=== PATIENT | female | born 1995 | race Caucasian/White ===

== ENCOUNTER 2021-06-24 10:43 | Outpatient (CLI) | payer BC, SELFPAY ==
[2021-06-24 11:34] LABS: Basophils Percent Auto 0.5 % (0.2-1.2); Eosinophils Absolute Auto 0.1 K/mm3 (0-0.3); Hematocrit 42.8 % (37.0-47.0); Immature Granulocyte Absolute 0.02 K/mm3 (0.00-0.031); Immature Granulocyte Percent A 0.3 % (0-0.5); Lymphocytes Absolute Auto 2.07 K/mm3 (0.9-3.2); Lymphocytes Percent Auto 33.7 % (18.3-44.2); Mean Corpuscular HGB Conc 32.7 g/dl (32-36); Mean Corpuscular Hemoglobin 31.3 pg (26-34); Mean Corpuscular Volume 95.5 fl (80-100); Mean Platelet Volume 9.6 fl (7.4-10.4); Monocytes Absolute Auto 0.5 K/mm3 (0.1-0.6); Monocytes Percent Auto 7.3 % (2.6-8.5); Neutrophils Absolute Auto 3.5 K/mm3 (1.3-6.7); Neutrophils Percent Auto 57.2 % (45.5-73.1); Platelet Count Result 298 k/mm3 (150-375); Red Blood Count 4.48 M/mm3 (4.2-5.4); White Blood Count 6.1 K/mm3 (4.5-10.0)
[2021-06-24 12:26] LABS: HIV 1/2 Ab P24 Ag Result Negative (Negative)
[2021-06-24 14:05] LABS: Hepatitis B Surface Antigen Negative (Negative); Rubella IgG Antibody 48.3 IU/ML
[2021-06-25 07:32] LABS: Rapid Plasma Reagin Non-Reactive (NonReactive)
[2021-06-26 08:34] LABS: CMV IgG Antibody <0.60 U/mL (<0.60)
== END 2021-06-24 10:44 | disposition home or self-care (01) ==
LOC: ANHLAB 10:48
PROVIDERS: PCP Obstetrics & Gynecology; Visit Provider Obstetrics & Gynecology
DX: N94.89 Other specified conditions associated with female genital organs and menstrual cycle (principal)
CPT/HCPCS: 36415; 84702; 85025; 86592; 86644; 86703; 86747; 86762; 86787; 86850; 86900; 86901; 87086; 87088; 87340; G0432

== ENCOUNTER 2021-06-28 09:57 | Emergency (ER) | payer BC, SELFPAY ==
--- NOTE | ~2021-06-28 | US_ITS ---
EXAMINATION: US OB <=14 wk fetus w TV DATE: 06/28/2021 14:58 INDICATION: Bleeding in early . TECHNIQUE: Real-time transabdominal and transvaginal pelvic ultrasound was performed. COMPARISON: None. FINDINGS: TRANSABDOMINAL ULTRASOUND: The uterus measures 8.5 x 4.3 x 5.7 cm. TRANSVAGINAL ULTRASOUND: There is a cyst in the endometrial complex with mean diameter of 1.8 cm. If this finding is a gestational sac, it correlates with an estimated gestational age of 6 weeks and 5 d ays. No yolk sac or pole is identified. The right ovary is not visualized. The left ovary measu res 3.2 x 2.3 x 2.5 cm. There is no free fluid in the pelvis. IMPRESSION: 1. Cyst in the endometrial complex that is indeterminate for a gestational sac with estimated date o f delivery of 02/16/2022. Spontaneous and ectopic are not excluded. Serial beta hC Gs are recommended. Reviewed, dictated and finalized at location A. IMPRESSION: 1. Cyst in the endometrial complex that is indeterminate for a gestational sac with estimated date of delivery of 02/16/2022. Spontaneous and ectopi c are not excluded. Serial beta hCGs are recommended.
[2021-06-28 10:08] VITALS: BP 152/86; PULSE 112; RESP 16; TEMP 36.8; O2SAT 100
[2021-06-28 11:11] LABS: Basophils Percent Auto 0.4 % (0.2-1.2); Eosinophils Percent Auto 0.7 % (0-4.4); Hematocrit 42.5 % (37.0-47.0); Immature Granulocyte Absolute 0.05 K/mm3 (0.00-0.031); Immature Granulocyte Percent A 0.9 % (0-0.5); Lymphocytes Absolute Auto 2.07 K/mm3 (0.9-3.2); Lymphocytes Percent Auto 37.4 % (18.3-44.2); Mean Corpuscular HGB Conc 32.9 g/dl (32-36); Mean Corpuscular Hemoglobin 31.5 pg (26-34); Mean Corpuscular Volume 95.5 fl (80-100); Mean Platelet Volume 9.2 fl (7.4-10.4); Monocytes Absolute Auto 0.5 K/mm3 (0.1-0.6); Monocytes Percent Auto 8.5 % (2.6-8.5); Neutrophils Absolute Auto 2.9 K/mm3 (1.3-6.7); Neutrophils Percent Auto 52.1 % (45.5-73.1); Platelet Count Result 303 k/mm3 (150-375); Red Blood Count 4.45 M/mm3 (4.2-5.4); Red Cell Distribution Width 12.1 % (11.5-14.5); White Blood Count 5.5 K/mm3 (4.5-10.0)
[2021-06-28 12:06] LABS: Appearance Urine Clear (Clear); Bilirubin Urine Negative (Negative); Blood Urine 2+ (Negative); Glucose Urine UA Negative (Negative); Ketones Urine Negative (Negative); Leukocyte Esterase Ur 3+ LEU/UL (Negative); Nitrate Urine Negative (Negative); Protein Urine Negative (Negative); Urobilinogen Urine 0.2 mg/dL (<2.0)
[2021-06-28 12:08] LABS: Add Urine Microscopic? YES; Color Urine Light Yellow (Yellow)
[2021-06-28 12:09] LABS: Bacteria Urine 2+ /hpf; Mucus Urine Rare /lpf; RBC Urine 0-2 /hpf (0-2); Squamous Epithelial Cell Urine Few /hpf (Few)
--- NOTE | 2021-06-28 12:17 | ED.FEMALEGU ---
HPI - Female Genitourinary General Chief complaint: Vaginal Bleeding <Ana Paula Ramirez PA-C - Last Filed: 06/28/21 19:18> Stated complaint: 9weeks , spotting <LYRIC Espinoza Last Filed: 06/28/21 19:18> Time Seen by Provider: 06/28/21 11:41 <LYRIC Espinoza Last Filed: 06/28/21 19:18> Source: patient <Ana Paula Ramirez PA-C - Last Filed: 06/28/21 19:18> Mode of arrival: ambulatory <LYRIC Espinoza Last Filed: 06/28/21 19:18> Limitations: no limitations <LYRIC Espinoza Last Filed: 06/28/21 19:18> History of Present Illness HPI Narrative: Patient is a 26-year-old female who presents the ED with report of vaginal bleeding. Patient reports she is approximately 9 weeks . . Her FOAM FABRICATOR is Dr. Rachel Win. She reports she noticed bright red vaginal bleeding with wiping after using the restroom today. Denied any clots. She did also have one episode of brown vaginal discharge last week. She has had intermittent cramping associated with having a bowel movement today, but denies any pain at this time. Patient saw her FOAM FABRICATOR earlier this week for the first time and had blood work done. Her beta-hCG on 06/24 was around 14,500. She had a bedside abdominal ultrasound and a gestational sac was seen however she was scheduled for an official ultrasound this upcoming Thursday. She was also diagnosed with a urinary tract infection at that time and has been on Keflex for the past 2 days. Patient denies any urinary symptoms. No fever, chills, nausea, vomiting. <LYRIC Espinoza Last Filed: 06/28/21 19:18> Related Data Home medications: Home Medications Medication Instructions Recorded Confirmed prenat.vits,primo,[id number] 1 tablet PO DAILY 06/20/21 06/20/21 <LYRIC Espinoza Last Filed: 06/28/21 19:18> Allergies/Adverse reactions: Allergies Allergy/AdvReac Type Severity Reaction Status Date / Time No Known Allergies Allergy Verified 06/20/21 08:22 <Ana Paula Ramirez PA-C - Last Filed: 06/28/21 19:18> Review of Systems Review of Systems: CONSTITUTIONAL: Denies fever, chills. CARDIOVASCULAR: Denies chest pain. RESPIRATORY: Denies dyspnea. GASTROINTESTINAL: Reports cramping w/ BM. Denies nausea, vomiting, or diarrhea. GENITOURINARY: Reports bright red vaginal bleeding. Denies dysuria or hematuria. MUSCULOSKELETAL: Denies back pain. <Ana Paula Ramirez PA-C - Last Filed: 06/28/21 19:18> All systems reviewed & are unremarkable except as noted in HPI and below <Ana Paula Ramirez PA-C - Last Filed: 06/28/21 19:18> PMFSH Past Medical History Medical History: Medical History (Updated 06/28/21 @ 15:35 by Ana Paula Ramirez PA-C) Currently Suppression of menses <Ana Paula Ramirez PA-C - Last Filed: 06/28/21 19:18> Surgical History Surgical History: Surgical History (Updated 06/28/21 @ 12:20 by Ana Paula Ramirez PA-C) No pertinent past surgical history <Ana Paula Ramirez PA-C - Last Filed: 06/28/21 19:18> Family History Family History: Family History (Updated 06/20/21 @ 08:19 by Chioma Dinh MA) Other Hypertension <Ana Paula Ramirez PA-C - Last Filed: 06/28/21 19:18> Social History Social History: Social History Smoking status: Never smoker Alcohol intake: never Substance use: never Substance use type: does not use Additional occupation/education comments: Media Gender identity (if verbalized by the patient): Female Sexual Orientation (if Verbalized by the Patient): Straight or Heterosexual <Ana Paula Ramirez PA-C - Last Filed: 06/28/21 19:18> Exam Narrative: GENERAL: Well appearing, well-nourished, non-toxic, in no acute distress. HEAD: Normocephalic, atraumatic. NECK: Supple. No adenopathy, no masses. RESPIRATORY: Airway patent, respirations nonlabored. Clear to auscultation bilaterally, no rales, rhonchi, wheezin
[2021-06-28 16:03] VITALS: PULSE 87; RESP 16; O2SAT 100
== END 2021-06-28 16:04 | disposition home or self-care (01) ==
PROVIDERS: Physician Assistant; Emergency Provider Emergency Medicine; PCP Obstetrics & Gynecology
DX: O03.9 Complete or unspecified spontaneous abortion without complication (principal)
CPT/HCPCS: 36415; 76801; 76817; 81001; 84702; 85025; 85461; 87086; 99284

== ENCOUNTER 2021-07-01 09:24 | Outpatient (CLI) | payer BC, SELFPAY | END 2021-07-01 09:25 | disposition home or self-care (01) | LOC: ANHLAB 09:26 | PROVIDERS: PCP Obstetrics & Gynecology; Visit Provider Obstetrics & Gynecology | DX: O02.1 Missed abortion (principal); Z3A.00 Weeks of gestation of pregnancy not specified | CPT/HCPCS: 36415; 84702 ==

== ENCOUNTER 2021-07-15 12:07 | Outpatient (CLI) | payer BC, SELFPAY ==
[2021-07-15 12:51] LABS: Beta HCG Quantitative 20.81 mIU/ML
== END 2021-07-15 12:08 | disposition home or self-care (01) ==
LOC: ANHLAB 12:08
PROVIDERS: PCP Obstetrics & Gynecology; Visit Provider Obstetrics & Gynecology
DX: O02.1 Missed abortion (principal); Z3A.00 Weeks of gestation of pregnancy not specified
CPT/HCPCS: 36415; 84702

== ENCOUNTER 2021-07-26 12:30 | Outpatient (CLI) | payer BC, SELFPAY ==
[2021-07-26 13:32] LABS: Beta HCG Quantitative < 2.39 mIU/ML
== END 2021-07-26 12:31 | disposition home or self-care (01) ==
LOC: ANHLAB 12:32
PROVIDERS: PCP Obstetrics & Gynecology; Visit Provider Obstetrics & Gynecology
DX: O02.1 Missed abortion (principal)
CPT/HCPCS: 36415; 84702

== ENCOUNTER 2021-11-07 15:17 | Outpatient (CLI) | payer BC, SELFPAY | END 2021-11-07 15:18 | disposition home or self-care (01) | LOC: ANHLAB 15:20 | PROVIDERS: PCP Obstetrics & Gynecology; Visit Provider Obstetrics & Gynecology | DX: O20.0 Threatened abortion (principal) | CPT/HCPCS: 36415; 84702 ==

== ENCOUNTER 2021-11-09 10:03 | Outpatient (CLI) | payer BC, SELFPAY | END 2021-11-09 10:04 | disposition home or self-care (01) | LOC: ANHLAB 10:05 | PROVIDERS: PCP Obstetrics & Gynecology; Visit Provider Obstetrics & Gynecology | DX: O20.0 Threatened abortion (principal); Z3A.00 Weeks of gestation of pregnancy not specified | CPT/HCPCS: 36415; 84702 ==

== ENCOUNTER 2021-11-22 12:14 | Outpatient (CLI) | payer BC, SELFPAY | END 2021-11-22 12:15 | disposition home or self-care (01) | LOC: ANHLAB 12:16 | PROVIDERS: PCP Obstetrics & Gynecology; Visit Provider Obstetrics & Gynecology | DX: O20.0 Threatened abortion (principal) | CPT/HCPCS: 36415; 84702 ==

== ENCOUNTER 2021-12-04 17:15 | Outpatient (CLI) | payer BC, SELFPAY ==
[2021-12-04 17:54] LABS: Basophils Percent Auto 0.2 % (0.2-1.2); Eosinophils Percent Auto 0.5 % (0-4.4); Hematocrit 39.9 % (37.0-47.0); Hemoglobin 13.6 g/dL (12.0-15.0); Immature Granulocyte Absolute 0.02 K/mm3 (0.00-0.031); Immature Granulocyte Percent A 0.2 % (0-0.5); Lymphocytes Absolute Auto 2.37 K/mm3 (0.9-3.2); Lymphocytes Percent Auto 28.3 % (18.3-44.2); Mean Corpuscular HGB Conc 34.1 g/dl (32-36); Mean Corpuscular Hemoglobin 32.2 pg (26-34); Mean Corpuscular Volume 94.3 fl (80-100); Mean Platelet Volume 9.7 fl (7.4-10.4); Monocytes Absolute Auto 0.7 K/mm3 (0.1-0.6); Monocytes Percent Auto 8.5 % (2.6-8.5); Neutrophils Absolute Auto 5.2 K/mm3 (1.3-6.7); Neutrophils Percent Auto 62.3 % (45.5-73.1); Platelet Count Result 316 k/mm3 (150-375); Red Blood Count 4.23 M/mm3 (4.2-5.4); Red Cell Distribution Width 11.9 % (11.5-14.5); White Blood Count 8.4 K/mm3 (4.5-10.0)
[2021-12-04 18:53] LABS: Hepatitis B Surface Antigen Negative (Negative); Rubella IgG Antibody 61.9 IU/ML
[2021-12-04 18:58] LABS: HIV 1/2 Ab P24 Ag Result Negative (Negative)
[2021-12-05 09:03] LABS: Rapid Plasma Reagin Non-Reactive (NonReactive)
[2021-12-06 17:58] LABS: CMV IgG Antibody <0.60 U/mL (<0.60)
== END 2021-12-04 17:16 | disposition home or self-care (01) ==
PROVIDERS: PCP Obstetrics & Gynecology; Visit Provider Obstetrics & Gynecology
DX: N94.89 Other specified conditions associated with female genital organs and menstrual cycle (principal); Z11.4 Encounter for screening for human immunodeficiency virus [HIV]
CPT/HCPCS: 36415; 85025; 86592; 86644; 86703; 86747; 86762; 86787; 86850; 86900; 86901; 87086; 87340; G0432

== ENCOUNTER 2022-03-10 10:36 | Observation (INO) | payer BC, SELFPAY ==
--- NOTE | 2022-03-10 10:36 | OBADM ---
This patient, Stefani Mccarthy, admitted to the OB room OB Post 116 for observation. Patient/family oriented to hospital policies and general routines including ID bracelet, bed and alarms, visiting hours, pain management, procedures, bathroom and other care routines, personal items, smoking policy, room service/diet, and visiting hours. Patient/Family are encouraged to report perceived risks to care and to ask questions if they do not understand what they are told or what they should do.
[2022-03-10] MEDS: DEXTROSE 5%/LACTATED RINGERS 1,000 ML 999 ML IV CONT (11:08)
[2022-03-10 11:09] LABS: Basophils Percent Auto 0.2 % (0.2-1.2); Hemoglobin 13.7 g/dL (12.0-15.0); Immature Granulocyte Absolute 0.06 K/mm3 (0.00-0.031); Immature Granulocyte Percent A 0.5 % (0-0.5); Lymphocytes Absolute Auto 0.38 K/mm3 (0.9-3.2); Lymphocytes Percent Auto 2.9 % (18.3-44.2); Mean Corpuscular HGB Conc 34.3 g/dl (32-36); Mean Corpuscular Hemoglobin 32.8 pg (26-34); Mean Corpuscular Volume 95.7 fl (80-100); Mean Platelet Volume 9.4 fl (7.4-10.4); Monocytes Absolute Auto 0.5 K/mm3 (0.1-0.6); Monocytes Percent Auto 3.8 % (2.6-8.5); Neutrophils Percent Auto 92.6 % (45.5-73.1); Platelet Count Result 275 k/mm3 (150-375); Red Blood Count 4.18 M/mm3 (4.2-5.4); Red Cell Distribution Width 12.4 % (11.5-14.5); White Blood Count 12.9 K/mm3 (4.5-10.0)
[2022-03-10] MEDS: ONDANSETRON INJ 4 MG/2 ML VIAL IV PUSH (11:09)
[2022-03-10 11:17] VITALS: BP 117/72; PULSE 111; BMI 22.7
[2022-03-10 11:19] LABS: Alanine Aminotransferase 20 U/L (6-35); Albumin Level 3.9 g/dL (3.5-5.1); Alkaline Phosphatase 71 U/L (38-126); Anion Gap 8 mmol/L (8-16); Aspartate Amino Transferase 28 U/L (14-36); Bilirubin,Total 0.7 mg/dL (0.2-1.3); Blood Urea Nitrogen 8 mg/dL (7-17); Calcium 8.6 mg/dL (8.4-10.2); Carbon Dioxide 20 mmol/L (22-30); Chloride 103 mmol/L (98-107); Estimated Glomerular Filt Rate > 60; Glucose 113 mg/dL (65-110); Potassium 3.5 mmol/L (3.4-5.0); Sodium 131 mmol/L (137-145)
[2022-03-10 11:25] VITALS: TEMP 36.5
[2022-03-10] MEDS: FAMOTIDINE 20 MG/2 ML VIAL IV PUSH (11:55)
[2022-03-10] MEDS: LACTATED RINGERS 1,000 ML 150 ML IV CONT (12:25)
[2022-03-10 14:42] LABS: Appearance Urine Clear (Clear); Bilirubin Urine Negative (Negative); Blood Urine Negative (Negative); Color Urine Yellow (Yellow); Glucose Urine UA 2+ mg/dL (Negative); Ketones Urine 4+ mg/dL (Negative); Leukocyte Esterase Ur Negative LEU/UL (NEGATIVE); Nitrate Urine Negative (Negative); Protein Urine 1+ mg/dL (Negative); Specific Grav Ur >= 1.030 (1.001-1.035); Urobilinogen Urine 0.2 mg/dL (<2.0)
[2022-03-10 15:12] LABS: Bacteria Urine Trace /hpf; Mucus Urine Few /lpf; Squamous Epithelial Cell Urine Occasional /hpf (Few); WBC Urine 0-3 /hpf (0-3)
[2022-03-10 15:31] LABS: Add Urine Microscopic? YES
--- NOTE | 2022-03-12 10:47 | P.PNOB_ITS ---
OB - Triage/Final Diagnosis Visit Information Date of evaluation: 03/10/22 Reason for evaluation: other (nausea/vomiting) Comments/Additional reasons for admission: I have assessed the risk for this patient, Stefani Mccarthy, and determined that she would benefit from observation care. Evaluation Laboratory results: Laboratory Tests 03/10/22 03/10/22 03/10/22 10:56 10:56 14:34 WBC 12.9 H RBC 4.18 L Hgb 13.7 Hct 40.0 MCV 95.7 MCH 32.8 MCHC 34.3 RDW 12.4 Plt Count 275 MPV 9.4 Immature Gran % (Auto) 0.5 Neut % (Auto) 92.6 H Lymph % (Auto) 2.9 L Dare % (Auto) 3.8 Eos % (Auto) 0.0 Baso % (Auto) 0.2 Lymph # (Auto) 0.38 L Dare # (Auto) 0.5 Eos # (Auto) 0.0 Baso # (Auto) 0.0 Abs Immat Gran (auto) 0.06 H Absolute Neuts (auto) 12.0 H Absolute Nucleated RBC 0.0 Nucleated RBC % 0.0 Sodium 131 L Potassium 3.5 Chloride 103 Carbon Dioxide 20 L Anion Gap 8 BUN 8 Creatinine 0.40 L Estim Creat Clear Calc Not Reportable Estimated GFR > 60 Glucose 113 H Calcium 8.6 Total Bilirubin 0.7 AST 28 ALT 20 Alkaline Phosphatase 71 Total Protein 7.0 Albumin 3.9 Urine Color Yellow Urine Appearance Clear Urine pH 6.0 Ur Specific [place] >= 1.030 Urine Protein 1+ H Urine Glucose (UA) 2+ H Urine Ketones 4+ H Ur Blood (Man) Negative Urine Nitrate Negative Urine Bilirubin Negative Urine Urobilinogen 0.2 Ur Leukocyte Esterase Negative Urine RBC 6-10 H Urine WBC 0-3 Ur Squamous Epith Cells Occasional Urine Bacteria Trace Urine Mucus Few H
== END 2022-03-10 15:50 | disposition home or self-care (01) ==
PROVIDERS: Admitting Provider Student in an Organized Health Care Education/Training Program; Referring Provider Obstetrics & Gynecology; Visit Provider Student in an Organized Health Care Education/Training Program
DX: O21.2 Late vomiting of pregnancy (principal); O99.612 Diseases of the digestive system complicating pregnancy, second trimester; R19.7 Diarrhea, unspecified; Z3A.22 22 weeks gestation of pregnancy
CPT/HCPCS: 36415; 80053; 81001; 85025; 87086; 96361; 96374; 96375; G0378; G0379; J2405; J7120; J7121

== ENCOUNTER 2022-04-17 07:09 | Outpatient (CLI) | payer BC, SELFPAY ==
[2022-04-17 09:06] LABS: Glucose 1 Hour PP 50gm Dose 87 mg/dL
[2022-04-17 09:16] LABS: Basophils Percent Auto 0.4 % (0.2-1.2); Eosinophils Percent Auto 0.4 % (0-4.4); Hematocrit 37.4 % (37.0-47.0); Hemoglobin 12.5 g/dL (12.0-15.0); Immature Granulocyte Absolute 0.09 K/mm3 (0.00-0.031); Immature Granulocyte Percent A 1.1 % (0-0.5); Lymphocytes Absolute Auto 1.94 K/mm3 (0.9-3.2); Lymphocytes Percent Auto 24.2 % (18.3-44.2); Mean Corpuscular HGB Conc 33.4 g/dl (32-36); Mean Corpuscular Hemoglobin 32.2 pg (26-34); Mean Corpuscular Volume 96.4 fl (80-100); Mean Platelet Volume 10.1 fl (7.4-10.4); Monocytes Absolute Auto 0.6 K/mm3 (0.1-0.6); Monocytes Percent Auto 7.7 % (2.6-8.5); Neutrophils Absolute Auto 5.3 K/mm3 (1.3-6.7); Neutrophils Percent Auto 66.2 % (45.5-73.1); Platelet Count Result 264 k/mm3 (150-375); Red Blood Count 3.88 M/mm3 (4.2-5.4); Red Cell Distribution Width 12.5 % (11.5-14.5)
[2022-04-17 09:45] LABS: HIV 1/2 Ab P24 Ag Result Negative (Negative)
== END 2022-04-17 07:10 | disposition home or self-care (01) ==
PROVIDERS: Visit Provider Obstetrics & Gynecology
DX: Z34.90 Encounter for supervision of normal pregnancy, unspecified, unspecified trimester (principal); Z3A.00 Weeks of gestation of pregnancy not specified
CPT/HCPCS: 36415; 82947; 85025; 86703; G0432

== ENCOUNTER 2022-07-09 16:56 | Inpatient (IN) | payer BC, SELFPAY ==
[2022-07-09] VITALS (18 sets, daily range): BP systolic 123–174; BP diastolic 64–124; PULSE 79–127; TEMP 36.6; BMI 27.8
--- NOTE | 2022-07-09 17:18 | LDADM ---
This patient, Stefani Mccarthy, was admitted to Labor/Delivery/Recovery 108 on 07/09/22 at 16:56. Plans for labor, pain management and were discussed with patient. Patient/family oriented to hospital policies and general routines including ID bracelet, bed and alarms, visiting hours, pain management, procedures, bathroom and other care routines, personal items, smoking policy, room service/diet and guest tray routines, security routines, and visiting hours. Patient/Family are encouraged to report perceived risks to care and to ask questions if they do not understand what they are told or what they should do. See OBIX for further documentation.
[2022-07-09 17:39] LABS: Basophils Percent Auto 0.2 % (0.2-1.2); Eosinophils Percent Auto 0.4 % (0-4.4); Hemoglobin 13.6 g/dL (12.0-15.0); Immature Granulocyte Absolute 0.09 K/mm3 (0.00-0.031); Immature Granulocyte Percent A 0.9 % (0-0.5); Lymphocytes Absolute Auto 2.72 K/mm3 (0.9-3.2); Mean Corpuscular Hemoglobin 32.3 pg (26-34); Mean Platelet Volume 10.2 fl (7.4-10.4); Monocytes Absolute Auto 0.7 K/mm3 (0.1-0.6); Monocytes Percent Auto 7.5 % (2.6-8.5); Neutrophils Absolute Auto 6.1 K/mm3 (1.3-6.7); Platelet Count Result 243 k/mm3 (150-375); Red Blood Count 4.21 M/mm3 (4.2-5.4); Red Cell Distribution Width 12.9 % (11.5-14.5); White Blood Count 9.7 K/mm3 (4.5-10.0)
[2022-07-09] MEDS: LACTATED RINGERS 1,000 ML 125 ML IV CONT (18:31)
[2022-07-09] MEDS: OXYTOCIN 30 UNITS/NS 500 ML 30 UNITS/500 ML BAG IV CONT (18:32)
--- NOTE | 2022-07-09 19:57 | WPDANESEPP ---
Anes - Eval Pre Procedure Procedure: labor epidural Date/Time: 07/09/22 19:57 Surgeon: allison Preop Diagnosis: pain during labor Pre Op Diagnosis: IOL Patient Data Age: 27 Gender: F Height: 1.65 m Weight: 76 kg Last Vital Signs Pulse 82 07/09/22 19:45 BP 128/86 07/09/22 19:45 O2 Del Method Room Air 07/09/22 17:17 Allergies Allergy/AdvReac Type Severity Reaction Status Date / Time No Known Allergies Allergy Verified 07/07/22 08:56 Home Medications Medication Instructions Recorded Confirmed Type prenat.vits,primo,[id number]-[id number] 1 tablet PO DAILY 06/20/21 07/09/22 History Laboratory Tests 07/09/22 17:10 WBC 9.7 K/mm3 (4.5-10.0) RBC 4.21 M/mm3 (4.2-5.4) Hgb 13.6 g/dL (12.0-15.0) Hct 40.0 % (37.0-47.0) MCV 95.0 fl (80-100) MCH 32.3 pg (26-34) MCHC 34.0 g/dl (32-36) RDW 12.9 % (11.5-14.5) Plt Count 243 k/mm3 (150-375) MPV 10.2 fl (7.4-10.4) Immature Gran % (Auto) 0.9 H % (0-0.5) Neut % (Auto) 63.0 % (45.5-73.1) Lymph % (Auto) 28.0 % (18.3-44.2) [place] % (Auto) 7.5 % (2.6-8.5) Eos % (Auto) 0.4 % (0-4.4) Baso % (Auto) 0.2 % (0.2-1.2) Lymph # (Auto) 2.72 K/mm3 (0.9-3.2) [place] # (Auto) 0.7 H K/mm3 (0.1-0.6) Eos # (Auto) 0.0 K/mm3 (0-0.3) Baso # (Auto) 0.0 K/mm3 (0.0-0.1) Abs Immat Gran (auto) 0.09 H K/mm3 (0.00-0.031) Absolute Neuts (auto) 6.1 K/mm3 (1.3-6.7) Absolute Nucleated RBC 0.0 K/mm3 (0.0-0.012) Nucleated RBC % 0.0 % (0.0-0.2) RPR Pending Blood Type O Positive Antibody Screen Negative Patient hx anesthesia problems: none Family hx anesthesia problems: none Results Review: All pre-operative results and documents have been reviewed as part of the pre-operative evaluation. [facility] Past Medical History Medical History Currently Suppression of menses Surgical History Surgical History No pertinent past surgical history Family History Family History Father Hypertension Social History Social History Smoking status: Never smoker Alcohol intake: never Substance use: never Substance use type: does not use Lack of Transportation: No Lack of Food: Never True Current Housing: I Have Housing Concerned About Future Housing: No Difficulty Paying Gas/Electric Bills: No Difficulty Paying for Meds: No Currently Unemployed: No Education: Bachelor's Degree Difficulty w/ Childcare or Family Care: No Living arrangements: with family Occupation/Education: occupation Additional occupation/education comments: Media Gender identity (if verbalized by the patient): Female Sexual Orientation (if Verbalized by the Patient): Straight or Heterosexual Spiritual care concerns: No Exam Day of Procedure 07/09/22 19:57
[2022-07-09] MEDS: ONDANSETRON INJ 4 MG/2 ML VIAL IV PUSH (23:52)
[2022-07-10] VITALS (147 sets, daily range): BP systolic 95–165; BP diastolic 56–136; PULSE 63–199; RESP 16–18; TEMP 36.3–37; O2SAT 95–100
[2022-07-10] MEDS: FAMOTIDINE 20 MG/2 ML VIAL IV PUSH (01:08)
[2022-07-10] MEDS: LACTATED RINGERS 1,000 ML 125 ML IV CONT ×2 (01:24→10:16)
--- NOTE | 2022-07-10 07:14 | WPDHPUPDATE1 ---
History and Physical Update Update Date/Time: 07/10/22 07:14 History and Physical has been reviewed, including an updated exam of the patient. There are NO changes in the patient's condition. Risks, benefits, and alternatives have been discussed and questions answered. Patient agrees to proceed with procedure.
--- NOTE | 2022-07-10 07:15 | WPDOBADMIT ---
Obstetrics - Admit Note Admission Note: record reviewed. No pertinent additions to the history and/or any subsequent changes in the physical findings that are not consistent with the expected course of the were found. Additions to the history and/or subsequent changes in the physical findings follow. None.
[2022-07-10 07:55] LABS: Rapid Plasma Reagin Non-Reactive (NonReactive)
[2022-07-10] MEDS: OXYTOCIN 30 UNITS/NS 500 ML 30 UNITS/500 ML BAG 125 UNITS IV CONT (10:15)
--- NOTE | 2022-07-10 10:22 | PM.OBPRVD ---
OB - Delivery Note Procedure Induction method: Per Cervidil Protocol Delivery augmentation: Pitocin Delivery monitor: External FHT and External Uterine Route of delivery: Episiotomy description: None Laceration Description: Perineal - 2nd Degree and Vaginal Delivery repair: chromic Specimen: No Quantitative Blood Loss (ml): 500 Anesthesia type: Epidural Disposition: Floor Narrative: Patient prepped and draped in the usual manner for this procedure. Maternal expulsive efforts delivered vertex over intact perineum. Rest of baby was delivered without difficulty, cord was clamped cut, and baby was passed maternal abdomen. Placenta then delivered spontaneously with uterus well contracted and minimal bleeding. Inspection revealed a right sulcus tear and a second-degree midline laceration. Sulcus tear was closed using 2-0 chromic in a running interlocking manner to approximate the vaginal tissue. Then the 2nd degree laceration was approximated by approximating the vaginal tissue in a running interlocking manner the deep tissue was then approximated using chromic and a subcuticular layer to approximate the skin edges. As noted above uterus was well contracted with minimal bleeding, and the perineum was intact. Immediate postoperative condition of mother and baby both excellent. Baby Weeks of gestation at delivery: 39 Infant gender: Female Weight (pounds): 7 Weight (ounces): 2 presentation: vertex position: Right Occiput Anterior Placenta delivery description: Spontaneous Cord Vessel Description: 3 Vessels score one minute: 8 score five minutes: 9 AMG Delivery Billing Delivery Delivery: Delivery Charge
--- NOTE | 2022-07-10 12:15 | OBPPTRN ---
Patient transferred to post room #285 via wheelchair Support person present. Oriented to unit, room, information board, rooming in, admission packet and security measures. Patient verbalizes understanding.
[2022-07-10] MEDS: IBUPROFEN 600 MG TABLET PO (14:52)
[2022-07-10] MEDS: DOCUSATE SODIUM 100 MG CAPSULE PO (16:11)
[2022-07-10] MEDS: ACETAMINOPHEN 325 MG TABLET 650 MG PO (19:46)
[2022-07-10] MEDS: WITCH HAZEL 40 PADS 1 PAD TOPICAL (19:46)
[2022-07-11] MEDS: IBUPROFEN 600 MG TABLET PO ×3 (04:12→16:38)
[2022-07-11] MEDS: ACETAMINOPHEN 325 MG TABLET 650 MG PO ×3 (04:13→16:39)
[2022-07-11 04:54] LABS: Hematocrit 30.6 % (37.0-47.0); Hemoglobin 10.3 g/dL (12.0-15.0)
--- NOTE | 2022-07-11 07:46 | P.DS_ITS ---
DS: Admitting Diagnosis Discharge Date 07/12/2022 Admitting Diagnosis DS: Discharge Diagnosis Discharge Diagnosis (1) , delivered: Code(s): O80 - Encounter for full-term uncomplicated delivery Status: Acute OB - DS: Summary OB Procedures : None OB Procedures Intrapartum: Spontaneous Vag Delivery OB Procedures: : None Time Spent with Patient Time attestation: Total time spent providing and/or coordinating discharge services: DS: Data Data Completed and Pending Labs on day of discharge: Labs from last 24 hours 07/11/22 07/09/22 04:18 17:10 Hgb 10.3 L D Hct 30.6 L RPR Non-reactive Discharge Plan Discharge Attending physician on discharge: Jas Goel Discharging Clinician: Jas Goel Patient Disposition: Home, Self-Care Activity: as tolerated Diet: as tolerated Patient Instructions: Antibiotic Form Stand Alone Forms: General Discharge Information Follow-up/Referrals: Jas Goel MD [Physician] - 2 Weeks Discharge Medications: New ibuprofen 600 mg Tablet 600 mg PO Q6H PRN (Reason: Cramping) Qty: 30 0RF Continued prenat.vits,primo,[id number] Tablet 1 tablet PO DAILY Date of admission: 07/09/22 16:56 Primary Care Provider: PHYSICIAN,JALOUSIES INSTALLER Admitting Provider: Jas Goel Attending physician on admission: Jas Goel Condition: Stable
[2022-07-11 09:15] VITALS: BP 131/80; PULSE 96; RESP 18; TEMP 36.4; O2SAT 98
--- NOTE | 2022-07-11 09:51 | WPDANLDPN2 ---
Anes-Prog Note L&D Date/Time: 07/11/22 09:51 Comfortable throughout: labor and delivery Neuraxial method: epidural Epidural/Spinal procedure site: clean & non-tender Neuro status: Neuro function grossly intact. Cardiovascular status: normal Respiratory status: normal Airway patency: baseline Mental status: baseline Post-Op hydration status: normal Vital Signs: Last Vital Signs Temp 36.7 C 07/10/22 23:00 Pulse 81 07/10/22 23:00 Resp 16 07/10/22 23:00 BP 103/64 07/10/22 23:00 Pulse Ox 99 07/10/22 16:15 O2 Del Method Room Air 07/10/22 16:15 Pain score (VAS): 10 I/O: Intake & Output 07/10/22 07/11/22 07/11/22 23:59 07:59 15:59 Intake Total 240 Balance 240 Post-procedural complaints: none Patient feedback: Patient satisfied with anesthetic care.
[2022-07-11] MEDS: MULTIVIT/MIN/PREN/FOL AC/IRON TABLET 1 TAB PO (10:34)
[2022-07-11] MEDS: DOCUSATE SODIUM 100 MG CAPSULE PO ×2 (10:34→16:38)
[2022-07-11 21:05] VITALS: BP 101/63; PULSE 70; RESP 14; TEMP 36.8; O2SAT 100
[2022-07-12] MEDS: ACETAMINOPHEN 325 MG TABLET 650 MG PO (04:29)
[2022-07-12] MEDS: IBUPROFEN 600 MG TABLET PO (04:30)
--- NOTE | 2022-07-12 05:00 | PC.NURSE ---
Patient viewed the discharge video Mother & Baby Care, The First Two Weeks . Patient was given the opportunity and encouraged to ask questions. Patient verbalized understanding of information shared and has been given the mother/baby guide for home reference.
[2022-07-12 07:00] VITALS: BP 136/94; PULSE 109; RESP 20; TEMP 36.8
[2022-07-12] MEDS: MULTIVIT/MIN/PREN/FOL AC/IRON TABLET 1 TAB PO (09:59)
[2022-07-12] MEDS: DOCUSATE SODIUM 100 MG CAPSULE PO (09:59)
[2022-07-14 09:14] VITALS: BP 138/95; PULSE 100; RESP 16; TEMP 36.9
== END 2022-07-12 12:00 | disposition home or self-care (01) | DRG 807 ==
LOC: ANHLDR 07-10 09:07 → ANHOB2 07-10 12:15
PROVIDERS: Admitting Provider Obstetrics & Gynecology; Visit Provider Obstetrics & Gynecology
DX: O70.1 Second degree perineal laceration during delivery (principal); Z37.0 Single live birth; Z3A.39 39 weeks gestation of pregnancy
CPT/HCPCS: 36415; 85014; 85018; 85025; 86592; 86850; 86900; 86901; A9270; J2405; J2590; J2795; J7120